=== PATIENT | female | born 1975 | race Caucasian/White ===

== ENCOUNTER 2016-12-21 09:57 | Emergency (ER) | payer OTHER ==
[~2016-12-21] VITALS: Ht 160 cm; Wt 61.2 kg
[~2016-12-21 09:57] MED LIST: AMOX500C PO
[2016-12-21 10:06] VITALS: BP 104/67
[2016-12-21] MEDS ORDERED: AMOX875T PO (10:59)
[2016-12-21] MEDS ORDERED: TRAM-29 PO (10:59)
--- NOTE | 2016-12-21 11:00 | PHYS DOC ---
Past Medical History Past Medical History: Depression Past Surgical History: Cholecystectomy, Other Additional Past Surgical Histo: laparoscopy; D&C; Additional Information: second hand Alcohol Use: None Drug Use: None Adult General Chief Complaint Chief Complaint: DENTAL PROBLEM HPI HPI Patient is a 41 year old left lower gum dental abscess that began 4 days ago. Patient states she has an appointment with her dentist in a couple days. Patient denies any fever or trismus. Review of Systems Review of Systems Constitutional: Denies fever or chills [] Eyes: Denies change in visual acuity, redness, or eye pain [] HENT: left lower gum dental abscess Integument: Denies rash or skin lesions [] Neurologic: Denies headache, focal weakness or sensory changes [] Endocrine: Denies polyuria or polydipsia [] Allergies Allergies Allergies Coded Allergies Type Severity Reaction Last Updated Verified Neomycin Allergy Unknown localized swelling 03/28/14 Yes bacitracin Allergy Unknown localized swelling 03/28/14 Yes polymyxin B Allergy Unknown localized swelling 03/28/14 Yes Physical Exam Physical Exam Constitutional: Well developed, well nourished, no acute distress, non-toxic appearance. [] HENT: Normocephalic, atraumatic, bilateral external ears normal, oropharynx moist, no oral exudates, nose normal. [] Teeth #19, 20, 21 and 22 are severely decayed and broken. Lower gum on the left side with small amount of diffuse swelling consistent with a dental abscess. There is no fluctuance to the area. Skin: Warm, dry, no erythema, no rash. [] Back: No tenderness, no CVA tenderness. [] Extremities: No tenderness, no cyanosis, no clubbing, ROM intact, no edema. [] Neurologic: Alert and oriented X 3, normal motor function, normal sensory function, no focal deficits noted. [] Psychologic: Affect normal, judgement normal, mood normal. [] Current Patient Data Vital Signs Vital Signs Date Time Temp Pulse Resp B/P Pulse Ox O2 Delivery O2 Flow Rate FiO2 12/21/16 10:06 98.4 77 16 100 Room Air 98.4 EKG EKG [] Radiology/Procedures Radiology/Procedures [] Course & Med Decision Making Course & Med Decision Making Pertinent Labs and Imaging studies reviewed. (See chart for details) Patient has a dental abscess. Discharged with amoxicillin for 10 days. Instructed to follow-up with the dentist as soon as possible. Dragon Disclaimer Dragon Disclaimer This electronic medical record was generated, in whole or in part, using a voice recognition dictation system. Departure Departure Impression: Primary Impression: Dental abscess Additional Impression: Dentalgia Disposition: 01 HOME, SELF-CARE Condition: STABLE Referrals: NO PCP (PCP) Follow-up with your dentist as soon as you can Patient Instructions: Dental Abscess Additional Instructions: You seen for a dental abscess. Ensure you complete your antibiotics. Follow-up with your dentist as soon as you can. Scripts Tramadol Hcl (Ultram)50 Mg Tablet1 Tab PO Q6HRS #30 TAB Prov:KATLIN VASQUEZ APRN 12/21/16 Amoxicillin 875 Mg Tablet1 Tab PO BID #20 TAB Prov:KATLIN VASQUEZ APRN 12/21/16 Problem Qualifiers KATLIN VASQUEZ APRN Dec 21, 2016 11:00
== END 2016-12-21 11:05 | disposition home or self-care (01) ==
LOC: ER 09:57
DX: K04.7 Periapical abscess without sinus (principal); K08.89 Other specified disorders of teeth and supporting structures; Z88.1 Allergy status to other antibiotic agents
CPT/HCPCS: 99283

== ENCOUNTER 2017-01-12 16:43 | Emergency (ER) | payer OTHER ==
[~2017-01-12] VITALS: Ht 162.6 cm; Wt 61.2 kg
[~2017-01-12 16:43] MED LIST changes: +AMOX875T PO; +TRAM-29 PO
[2017-01-12 17:06] VITALS: BP 106/56
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
[2017-01-12] MEDS ORDERED: NAPR550T PO (18:10)
[2017-01-12] MEDS ORDERED: ORPH100T PO (18:10)
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
== END 2017-01-12 18:19 | disposition home or self-care (01) ==
LOC: ER 16:43
DX: S46.911A Strain of unspecified muscle, fascia and tendon at shoulder and upper arm level, right arm, initial encounter (principal); S39.012A Strain of muscle, fascia and tendon of lower back, initial encounter; Z88.1 Allergy status to other antibiotic agents; V49.88XA Car occupant (driver) (passenger) injured in other specified transport accidents, initial encounter; Y93.89 Activity, other specified; Y99.8 Other external cause status; Y92.488 Other paved roadways as the place of occurrence of the external cause
CPT/HCPCS: 73030; 99284

== ENCOUNTER 2017-02-25 16:57 | Emergency (ER) | payer OTHER ==
[~2017-02-25] VITALS: Ht 162.6 cm; Wt 63.5 kg
[~2017-02-25 16:57] MED LIST changes: +NAPR550T PO; +ORPH100T PO
[2017-02-25 17:20] VITALS: BP 103/71
[2017-02-25] MEDS ORDERED: HYDR-971 PO (17:34)
[2017-02-25] MEDS ORDERED: AMOX875T PO (17:34)
[2017-02-25] MEDS ORDERED: NAPR500T8 PO (17:34)
--- NOTE | 2017-02-25 17:36 | PHYS DOC ---
Past Medical History Past Medical History: Depression Additional Past Medical Histor: ulcers Past Surgical History: Other Additional Past Surgical Histo: laparoscopy; D&C; colonoscopy Alcohol Use: None Drug Use: None Adult General Chief Complaint Chief Complaint: DENTAL PROBLEM HPI HPI Patient is a 41 year old female who presents with mild left-sided dental pain worse on bitting that began this morning. Patient states she has a dental abscess. She states she tried calling the dentist but they couldn't get her in. Patient denies any fever or trismus. Review of Systems Review of Systems Constitutional: Denies fever or chills [] Eyes: Denies change in visual acuity, redness, or eye pain [] HENT: Dental pain Integument: Denies rash or skin lesions [] Neurologic: Denies headache, focal weakness or sensory changes [] Endocrine: Denies polyuria or polydipsia [] Allergies Allergies Allergies Coded Allergies Type Severity Reaction Last Updated Verified bacitracin Allergy Unknown localized swelling 03/28/14 Yes neomycin Allergy Unknown localized swelling 03/28/14 Yes polymyxin B Allergy Unknown localized swelling 03/28/14 Yes Physical Exam Physical Exam Constitutional: Well developed, well nourished, no acute distress, non-toxic appearance. [] HENT: Normocephalic, atraumatic, bilateral external ears normal, oropharynx moist, no oral exudates, nose normal. [] Severe dental caries throughout her teeth. Most of her teeth appear infected. Left upper gum is mildly indurated. There is redness on the left upper gum. There is a tiny abscess on the premolar on the left upper gum with no fluctuance. Skin: Warm, dry, no erythema, no rash. [] Back: No tenderness, no CVA tenderness. [] Extremities: No tenderness, no cyanosis, no clubbing, ROM intact, no edema. [] Neurologic: Alert and oriented X 3, normal motor function, normal sensory function, no focal deficits noted. [] Psychologic: Affect normal, judgement normal, mood normal. [] Current Patient Data Vital Signs Vital Signs Date Time Temp Pulse Resp B/P (MAP) Pulse Ox O2 Delivery O2 Flow Rate FiO2 02/25/17 17:20 98.2 78 18 97 Room Air 98.2 EKG EKG [] Radiology/Procedures Radiology/Procedures [] Course & Med Decision Making Course & Med Decision Making Pertinent Labs and Imaging studies reviewed. (See chart for details) Patient has infected dental caries and a dental abscess. Discharged with amoxicillin. Provided a note for work. Follow-up with a dentist as soon as possible. Maximiliano Disclaimer Maximiliano Disclaimer This electronic medical record was generated, in whole or in part, using a voice recognition dictation system. Departure Departure Impression: Primary Impression: Dentalgia Additional Impressions: Infected dental caries Dental abscess Disposition: HOME, SELF-CARE Condition: STABLE Referrals: NO PCP (PCP) Follow-up with a dentist as soon as possible Patient Instructions: Dental Abscess, Dental Caries Additional Instructions: You were seen for infected dental caries. We put you on antibiotics. Ensure you complete them. Follow up with your dentist as soon as possible Scripts Naproxen (NAPROXEN) 500 Mg Tablet. 1 TAB PO BID, #60 TAB 1 Refill Prov: KATLIN VASQUEZ APRN 02/25/17 Hydrocodone/Apap 5-325 (NORCO 5-325 TABLET) 1 Each Tablet 1-2 TAB PO Q4-6HRS, #10 TAB Prov: KATLIN VASQUEZ APRN 02/25/17 Amoxicillin (AMOXICILLIN) 875 Mg Tablet 1 TAB PO BID, #20 TAB Prov: KATLIN VASQUEZ APRN 02/25/17 Problem Qualifiers KATLIN VASQUEZ APRN February 25, 2017 17:36
== END 2017-02-25 17:44 | disposition home or self-care (01) ==
LOC: ER 16:57
DX: K04.7 Periapical abscess without sinus (principal); K02.9 Dental caries, unspecified; Z88.1 Allergy status to other antibiotic agents
CPT/HCPCS: 99283

== ENCOUNTER → 2017-04-04 | Outpatient (CLI) | payer OTHER ==
[~2017-04-04] MED LIST changes: +HYDR-971 PO; +NAPR500T8 PO; -TRAM-29 PO; +TRAM-48 PO
--- NOTE | 2017-04-04 12:16 | RAD ---
MR of the right shoulder Indication: Right shoulder pain. Injury 3 months ago. Burning sensation anteriorly. Technique: Standard multiplanar sequences are obtained. Findings: Mild/moderate motion degradation. Acromioclavicular joint:Intact. Rotator cuff: Mild thickening and signal compatible with tendinosis. No measurable fluid defect or rupture. No significant subdeltoid bursal fluid. Glenohumeral joint: No significant effusion. No advanced osteoarthritis. Labrum: No evidence of a tear. Biceps tendon: Limited visualization due to the motion. No definite acute abnormality. Bones: No lesion or acute fracture. Soft tissue: No acute findings. Impression: Rotator cuff tendinosis. No measurable tear. Electronically signed by: James Lopez MD (04/04/2017 12:13 PM)
== END | disposition home or self-care (01) ==
LOC: MRI 10:35
PROVIDERS: ATTEND Orthopaedic Surgery Sports Medicine
DX: M25.511 Pain in right shoulder (principal); R20.8 Other disturbances of skin sensation; X58.XXXD Exposure to other specified factors, subsequent encounter
CPT/HCPCS: 73221

== ENCOUNTER 2017-04-13 19:04 | Emergency (ER) | payer OTHER ==
[~2017-04-13] VITALS: Ht 165.1 cm; Wt 62.6 kg
[2017-04-13 19:20] VITALS: BP 110/59
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
[2017-04-13] MEDS ORDERED: HYDROcodone/APAP 5/325MG 1 TAB TABLET ONE (19:52)
[2017-04-13] MEDS ORDERED: HYDROcodone/APAP 5/325MG 1 TAB TABLET PO ONE (20:00)
== END 2017-04-13 19:57 | disposition home or self-care (01) ==
LOC: ER 19:04
DX: G89.29 Other chronic pain (principal); M25.511 Pain in right shoulder; F32.9 Major depressive disorder, single episode, unspecified; Z88.1 Allergy status to other antibiotic agents
CPT/HCPCS: 99282

== ENCOUNTER 2017-11-10 10:01 | Emergency (ER) | payer SELFPAY, OTHER ==
[2017-11-10] MEDS: HYDROcodone/APAP 5/325MG 1 TAB TABLET PO ×2 (11:26)
[2017-11-10] MEDS: NAPROXEN 500 MG TABLET PO ×2 (11:27)
== END 2017-11-10 11:47 | disposition home or self-care (01) ==
LOC: ER 11:47
DX: M25.561 Pain in right knee (principal); F32.9 Major depressive disorder, single episode, unspecified; Z88.1 Allergy status to other antibiotic agents
CPT/HCPCS: 73564; 99284

== ENCOUNTER 2017-11-15 12:27 | Emergency (ER) | payer SELFPAY | END 2017-11-15 13:00 | disposition home or self-care (01) | LOC: ER 12:27 | DX: Z02.89 Encounter for other administrative examinations (principal); F32.9 Major depressive disorder, single episode, unspecified; Z88.1 Allergy status to other antibiotic agents | CPT/HCPCS: 99281 ==

== ENCOUNTER 2018-04-28 10:14 | Emergency (ER) | payer SELFPAY ==
[2018-04-28] MEDS ORDERED: HYDROcodone/APAP 5/325MG 1 TAB TABLET (11:33)
[2018-04-28] MEDS: HYDROcodone/APAP 5/325MG 1 TAB TABLET PO (11:35)
== END 2018-04-28 11:36 | disposition home or self-care (01) ==
LOC: ER 11:36
DX: K04.7 Periapical abscess without sinus (principal); F32.9 Major depressive disorder, single episode, unspecified; Z88.1 Allergy status to other antibiotic agents
CPT/HCPCS: 99283

== ENCOUNTER 2018-05-20 08:23 | Emergency (ER) | payer SELFPAY ==
[~2018-05-20] VITALS: Ht 162.6 cm; Wt 63.5 kg
[~2018-05-20 08:23] MED LIST changes: +METH4TAB2 PO; +NAPR-682 PO; -NAPR550T PO; +PENI500T PO; +TRAM50TA PO
[2018-05-20 08:57] VITALS: BP 109/66
--- NOTE | 2018-05-20 09:08 | PHYS DOC ---
Past Medical History Past Medical History: Depression Additional Past Medical Histor: ulcers Past Surgical History: Other Additional Past Surgical Histo: laparoscopy; D&C; colonoscopy Alcohol Use: None Drug Use: None Adult General Chief Complaint Chief Complaint: MECHANICAL FALL HPI HPI Patient is a 43 year old female presents to the ED complaining of fall x 2 days ago. States she tripped and fell landing on her right knee. Discussed the pain as sharp. Rates the pain as 6 out of 10. Patient able to ambulate without assistance. Denies fever, head/neck injury, LOC, vision changes, nausea/vomiting , dizziness, weakness or paresthesias. Review of Systems Review of Systems Constitutional: Denies fever or chills [] Respiratory: Denies cough or shortness of breath [] Cardiovascular: No additional information not addressed in HPI [] GI: Denies abdominal pain, nausea, vomiting, bloody stools or diarrhea [] : Denies dysuria or hematuria [] Musculoskeletal: Complains of right knee tenderness. Denies back pain or joint pain [] Integument: Denies rash or skin lesions [] Neurologic: Denies headache, focal weakness or sensory changes [] All other systems were reviewed and found to be within normal limits, except as documented in this note. Allergies Allergies Allergies Coded Allergies Type Severity Reaction Last Updated Verified bacitracin Allergy Unknown localized swelling 03/28/14 Yes neomycin Allergy Unknown localized swelling 03/28/14 Yes polymyxin B Allergy Unknown localized swelling 03/28/14 Yes Physical Exam Physical Exam Constitutional: Well developed, well nourished, no acute distress, non-toxic appearance. [] HENT: Normocephalic, atraumatic Neck: Normal range of motion, no tenderness, supple, no stridor. [] Cardiovascular:Heart rate regular rhythm, no murmur [] Lungs & Thorax: Bilateral breath sounds clear to auscultation [] Skin: Warm, dry, no erythema, no rash. [] Back: No tenderness, no CVA tenderness. [] Extremities: mild left anterior knee tenderness, no cyanosis, no clubbing, ROM intact, no edema. [] Neurologic: Alert and oriented X 3, normal motor function, normal sensory function, no focal deficits noted. [] Psychologic: Affect normal, judgement normal, mood normal. [] Current Patient Data Vital Signs Vital Signs Date Time Temp Pulse Resp B/P (MAP) Pulse Ox O2 Delivery O2 Flow Rate FiO2 05/20/18 08:57 98.5 74 16 109/66 (80) 100 Room Air 98.5 EKG EKG [] Radiology/Procedures Radiology/Procedures PROCEDURE: KNEE RIGHT 3V Indication:FALL X1 DAY AGO ON RIGHT KNEE. PAIN AND SWELLING TECHNIQUE: 3 views of the right knee COMPARISON:None FINDINGS: No acute fracture or dislocation. No suprapatellar effusion. No arthritic changes. IMPRESSION: No acute osseous findings. [] Course & Med Decision Making Course & Med Decision Making Pertinent Labs and Imaging studies reviewed. (See chart for details) []Discussed imaging findings with patient. Patient's pain improved. Patient able to ambulate without assistance. Discussed follow-up with orthopedics if pain persists. Provided contact information/education. Discussed reasons to return to the ED. Patient understands and agrees with plan. Dragon Disclaimer Dragon Disclaimer This electronic medical record was generated, in whole or in part, using a voice recognition dictation system. Departure Departure Impression: Primary Impression: Knee sprain Disposition: 01 HOME, SELF-CARE Condition: IMPROVED Referrals: NO PCP (PCP) MELYSSA CASTANO II, MD Patient Instructions: Knee Sprain SANDRA DE OLIVEIRA May 20, 2018 09:08
--- NOTE | 2018-05-20 09:18 | RAD ---
Indication:FALL X1 DAY AGO ON RIGHT KNEE. PAIN AND SWELLING TECHNIQUE: 3 views of the right knee COMPARISON:None FINDINGS: No acute fracture or dislocation. No suprapatellar effusion. No arthritic changes. IMPRESSION: No acute osseous findings. Electronically signed by: Ezio Lan DO (05/20/2018 9:14 AM) [facility]
== END 2018-05-20 09:51 | disposition home or self-care (01) ==
LOC: ER 08:23
DX: S83.91XA Sprain of unspecified site of right knee, initial encounter (principal); F32.9 Major depressive disorder, single episode, unspecified; Z88.1 Allergy status to other antibiotic agents; W01.0XXA Fall on same level from slipping, tripping and stumbling without subsequent striking against object, initial encounter; Y93.89 Activity, other specified; Y92.89 Other specified places as the place of occurrence of the external cause; Y99.8 Other external cause status
CPT/HCPCS: 73562; 96374; 96375; 99284; 99285-25

== ENCOUNTER 2018-06-13 15:03 | Emergency (ER) | payer SELFPAY ==
[~2018-06-13] VITALS: Ht 160 cm; Wt 63.5 kg
[2018-06-13 15:13] VITALS: BP 118/65
--- NOTE | 2018-06-13 15:55 | PHYS DOC ---
Past Medical History Past Medical History: Depression Additional Past Medical Histor: ulcers Past Surgical History: Other Additional Past Surgical Histo: laparoscopy; D&C; colonoscopy Alcohol Use: None Drug Use: None Adult General Chief Complaint Chief Complaint: SORE THROAT HPI HPI Patient is a 43 year old female who presents with a sore throat 2 days. She denies fever, congestion or earache. She states that she has had some sinus drainage from her allergies. She would like to be checked for strep throat because her niece was recently diagnosed with strep pharyngitis. Review of Systems Review of Systems Constitutional: Denies fever or chills [] Eyes: Denies change in visual acuity, redness, or eye pain [] HENT: See history of present illness Respiratory: Denies cough or shortness of breath [] Cardiovascular: No additional information not addressed in HPI [] Neurologic: Denies headache, focal weakness or sensory changes [] Endocrine: Denies polyuria or polydipsia [] All other systems were reviewed and found to be within normal limits, except as documented in this note. Allergies Allergies Allergies Coded Allergies Type Severity Reaction Last Updated Verified bacitracin Allergy Unknown localized swelling 03/28/14 Yes neomycin Allergy Unknown localized swelling 03/28/14 Yes polymyxin B Allergy Unknown localized swelling 03/28/14 Yes Physical Exam Physical Exam Constitutional: Well developed, well nourished, no acute distress, non-toxic appearance. [] HENT: Normocephalic, atraumatic, bilateral external ears normal, mild pharyngeal erythema with no exudates, there is a 1 cm area of discoloration on the soft palate, nose normal. [] Eyes: PERRLA, EOMI, conjunctiva normal, no discharge. [] Neck: Normal range of motion, no tenderness, supple, no stridor. [] Cardiovascular:Heart rate regular rhythm, no murmur [] Lungs & Thorax: Bilateral breath sounds clear to auscultation [] Neurologic: Alert and oriented X 3, normal motor function, normal sensory function, no focal deficits noted. [] Psychologic: Affect normal, judgement normal, mood normal. [] Current Patient Data Vital Signs Vital Signs Date Time Temp Pulse Resp B/P (MAP) Pulse Ox O2 Delivery O2 Flow Rate FiO2 06/13/18 15:13 98.2 76 18 118/65 (82) 99 Room Air 98.2 EKG EKG [] Radiology/Procedures Radiology/Procedures [] Course & Med Decision Making Course & Med Decision Making Pertinent Labs and Imaging studies reviewed. (See chart for details) []The patient's rapid strep was negative. She has been instructed to follow up on the discoloration was noted on exam for further evaluation. She is in agreement with this plan. Dragon Disclaimer Dragon Disclaimer This electronic medical record was generated, in whole or in part, using a voice recognition dictation system. Departure Departure Impression: Primary Impression: Pharyngitis Disposition: 01 HOME, SELF-CARE Condition: STABLE Referrals: NO PCP (PCP) Patient Instructions: Viral Pharyngitis Additional Instructions: You may use ibuprofen or Tylenol for pain. Use salt water gargles. Have the discoloration on your soft palate rechecked by your physician. You may try using an [id number] allergy medication such as Claritin or Zyrtec for symptom control. JANE NAIDU APRN Jun 13, 2018 15:55
== END 2018-06-13 16:39 | disposition home or self-care (01) ==
LOC: ER 15:03
DX: J02.9 Acute pharyngitis, unspecified (principal); F32.9 Major depressive disorder, single episode, unspecified; Z88.1 Allergy status to other antibiotic agents
CPT/HCPCS: 87070; 87880; 99283

== ENCOUNTER 2020-12-21 12:48 | Emergency (ER) | payer SELFPAY ==
[~2020-12-21] VITALS: Ht 162.6 cm; Wt 65.0 kg
[~2020-12-21 12:48] MED LIST changes: +HYDR-3164 PO; -HYDR-971 PO
[2020-12-21 14:48] VITALS: BP 141/55
--- NOTE | 2020-12-21 15:22 | PHYS DOC ---
Past Medical History Past Medical History: Depression, Migraines Additional Past Medical Histor: ulcers Past Surgical History: Other Additional Past Surgical Histo: laparoscopy; D&C; colonoscopy Smoking Status: Never Smoker Alcohol Use: None Drug Use: None Adult General Chief Complaint Chief Complaint: HEADACHE HPI HPI Patient is a 45 year old female reports a past medical history of migraines now presenting to the emergency department complaint of new onset headache. Patient states that her last 2 days she had a worsening frontal throbbing headache with positive photophobia and phonophobia. No numbness, weakness but does have nausea with no episode of vomiting. Patient states that she was started taking Tylenol Motrin at home with no significant improvement of her symptoms. Patient states that she has migraines approximately 4 times a year and usually controlled with oral [id number] medications. Patient states her last migraine requiring IV medications about a year ago. Patient states that her last follow-up with a neurologist was approximately 8 months ago. Denies any fevers, chills, sore throat, cough, chest pain or shortness of breath. Review of Systems Review of Systems Constitutional: Denies fever or chills [] Eyes: Denies change in visual acuity, redness, or eye pain [] HENT: Denies nasal congestion or sore throat [] Respiratory: Denies cough or shortness of breath [] Cardiovascular: No additional information not addressed in HPI [] GI: Denies abdominal pain, nausea, vomiting, bloody stools or diarrhea [] : Denies dysuria or hematuria [] Musculoskeletal: Denies back pain or joint pain [] Integument: Denies rash or skin lesions [] Neurologic: Denies headache, focal weakness or sensory changes [] Endocrine: Denies polyuria or polydipsia [] All other systems were reviewed and found to be within normal limits, except as documented in this note. Current Medications Current Medications Current Medications Medications (Trade) Dose Ordered Sig/Palak Start Time Stop Time Status Last Admin Dose Admin Diphenhydramine HCl (Benadryl) 50 mg 1X ONCE 12/21/20 15:30 12/21/20 15:31 DC Ketorolac Tromethamine (Toradol 15mg Vial) 15 mg 1X ONCE 12/21/20 15:30 12/21/20 15:31 DC Metoclopramide HCl (Reglan Vial) 10 mg 1X ONCE 12/21/20 15:30 12/21/20 15:31 DC Sodium Chloride 1,000 ml @ 1,000 mls/hr 1X ONCE 12/21/20 15:30 12/21/20 16:29 Allergies Allergies Allergies Coded Allergies Type Severity Reaction Last Updated Verified bacitracin Allergy Intermediate localized swelling 12/21/20 Yes neomycin Allergy Intermediate localized swelling 12/21/20 Yes polymyxin B Allergy Intermediate localized swelling 12/21/20 Yes Physical Exam Physical Exam Constitutional: Well developed, well nourished, no acute distress, non-toxic appearance. [] HENT: Normocephalic, atraumatic, bilateral external ears normal, oropharynx moist, no oral exudates, nose normal. [] Eyes: PERRLA, EOMI, conjunctiva normal, no discharge. [] Neck: Normal range of motion, no tenderness, supple, no stridor. [] Cardiovascular:Heart rate regular rhythm, no murmur [] Lungs & Thorax: Bilateral breath sounds clear to auscultation [] Abdomen: Bowel sounds normal, soft, no tenderness, no masses, no pulsatile masses. [] Skin: Warm, dry, no erythema, no rash. [] Back: No tenderness, no CVA tenderness. [] Extremities: No tenderness, no cyanosis, no clubbing, ROM intact, no edema. [] Neurologic: Alert and oriented X 3, normal motor function, normal sensory function, no focal deficits noted. [] Psychologic: Affect normal, judgement normal, mood normal. [] Current Patient Data Vital Signs Vital Signs Date Time Temp Pulse Resp B/P (MAP) Pulse Ox O2 Delivery O2 Flow Rate FiO2 12/21/20 14:48 98.7 72 18 141/55 (83) 99 Room Air 98.7 EKG EKG [] Radiology/Procedures Radiology/Procedures [] Course & Med Decision Making Course & Med Decision Making Pertinent Labs and Imaging studies reviewed. (See chart for details) 45-year-old female presented emergency department with new onset of apparent migraine. No significant findings on neurologic exam and no neurologic deficits. At this time will provide migraine cocktail and reevaluate. 16:19 -my attempted to reevaluate the patient she was already found. Appears that she is eloped. Dragon Disclaimer Dragon Disclaimer This electronic medical record was generated, in whole or in part, using a voice recognition dictation system. Departure Departure Impression: Primary Impression: Migraine Disposition: 07 AMA/ELOPED/LWBS Condition: STABLE Referrals: NO PCP (PCP) Patient Instructions: Migraine Headache ARIA COREY MD Dec 21, 2020 15:22
[2020-12-21] MEDS ORDERED: METOCLOPRAMIDE HCL 10 MG/2 ML VIAL. IVP ONE (15:30)
[2020-12-21] MEDS ORDERED: diphenhydrAMINE 50 MG/ML VIAL IVP ONE (15:30)
[2020-12-21] MEDS ORDERED: IV NORMAL SALINE 1000ML BAG 1,000 ML IV ONE (15:30)
[2020-12-21] MEDS ORDERED: KETOROLAC 15 MG/ML VIAL. IVP ONE (15:30)
== END 2020-12-21 15:49 | disposition left against medical advice (07) ==
LOC: ER 12:48
DX: G43.909 Migraine, unspecified, not intractable, without status migrainosus (principal); H53.143 Visual discomfort, bilateral; F32.9 Major depressive disorder, single episode, unspecified; Z98.890 Other specified postprocedural states; Z88.1 Allergy status to other antibiotic agents; Z88.8 Allergy status to other drugs, medicaments and biological substances
CPT/HCPCS: 99281

== ENCOUNTER 2021-01-22 06:59 | Emergency (ER) | payer SELFPAY ==
[~2021-01-22] VITALS: Ht 160 cm; Wt 70.4 kg
[2021-01-22 07:14] VITALS: BP 105/68
--- NOTE | 2021-01-22 08:07 | PHYS DOC ---
Past Medical History Past Medical History: Depression, Migraines Additional Past Medical Histor: ulcers Past Surgical History: Other Additional Past Surgical Histo: laparoscopy; D&C; colonoscopy Smoking Status: Never Smoker Alcohol Use: None Drug Use: None General Adult EDM: Chief Complaint: MECHANICAL FALL HPI: HPI: 45-year-old female presenting to the emergency department today after a fall. She reports falling down about 8 stairs. She mostly landed on her left side and has pain in her left trapezius musculature and her left flank. She has a bruise on her left flank. She denies hitting her head, loss of consciousness or any other injuries. The pain in her flank is moderate nonradiating without alleviating factors associated with a bruise. Her shoulder pain is worse after lifting heavy objects yesterday. She denies any pain in the shoulder joint itself but her her pain is in the trapezius musculature of the back. Review of systems negative for abdominal pain chest pain shortness of breath headache head injury loss of consciousness neck pain numbness weakness or tingling or any other injuries to her extremities. All other review of systems negative. ED course: 45-year-old female presented emerge department today with left flank pain and left trapezius muscular pain after a fall down the stairs. On exam her shoulder has normal range of motion has no pain with passive range of motion. She is nontender clavicle with good strength in extension and flexion and internal and external rotation. Neurovascular intact with palpable pulse. Her extremities otherwise are atraumatic without any bruising and nontender. Normal motion of the joints. Neurovascular intact in her extremities. The head is atraumatic and nontender to palpation. Her back has a bruise on the left side. My plan was to get a CBC chemistry panel urine analysis and a CT the abdomen pelvis to exclude retroperitoneal hematoma. I do not believe that we need to do a shoulder x-ray today as she is nontender in the joint with normal range of motion without any pain in the joint itself. Unfortunately the patient wanted to leave AMA. AMA I informed the patient of their right to a medical screening exam and any treatment and/or stabilization that may be necessary regardless of their ability to pay. The patient appears to have intact insight, judgment, and reason. In my opinion, this patient has the capacity to make decisions. The patient presented with left flank pain after a fall and I am concerned that this could be retroperitoneal hematoma or other acute traumatic injuries. My initial plan prior to the pt expressing the desire to leave was blood work with CT and urinalysis. I explained the risk of and disability to the patient in plain language which they were able to demonstrate in their own words verbal understanding. I discussed the limitations of the workup thus far. The pt has verbalized understanding of my concerns. I offered alternatives to the therapy including close follow-up. I recommended the pt follow up with family doctor/PCP today or tomorrow. I explained that at any time if the patient changed their mind, we are always open and would be happy to have them back. The patient refused further care and then left against medical advice. Heart Score: C/O Chest Pain: No Risk Factors: Risk Factors: DM, Current or recent (<one month) smoker, HTN, HLP, family hist ory of CAD, obesity. Risk Scores: Score 0 - 3: 2.5% MACE over next 6 weeks - Discharge Home Score 4 - 6: 20.3% MACE over next 6 weeks - Admit for Clinical Observation Score 7 - 10: 72.7% MACE over next 6 weeks - Early Invasive Strategies Allergies: Allergies: Allergies Coded Allergies Type Severity Reaction Last Updated Verified bacitracin Allergy Intermediate localized swelling 12/21/20 Yes neomycin Allergy Intermediate localized swelling 12/21/20 Yes polymyxin B Allergy Intermediate localized swelling 12/21/20 Yes Physical Exam: PE: General Appearance alert, cooperative, no distress, responsive Head Normocephalic, without obvious abnormality, atraumatic Eyes conjunctivae/corneas clear. PERRL, EOM's intact. Ears normal TM's and external ear canals AU Nose Nares normal. Septum midline. Mucosa normal. No drainage or sinus tenderness. Throat no blood or lacerations, normal alignment Neck supple, symmetrical, trachea midline, cervical collar in place Back/Spine symmetric, normal curvature. ROM normal, no abrasions, no tenderness to palpation in the midline, no step-offs. Patient has an area of ecchymosis on the left flank which is tender to palpation. Nontender in the rib cage. Lungs clear to auscultation bilaterally Chest Wall normal ribcage without tenderness to palpation, crepitus or emphysema Heart reg rate and regular rhythm, S1, S2 normal, no murmur, click, rub or gallop Abdomen soft, non-tender. Bowel sounds normal. No masses, no organomegaly Pelvic stable Extremities extremities normal, atraumatic with normal range of motion Pulses 2+ and symmetric Skin Skin color, texture, turgor normal. No rashes or lesions Neurologic Grossly normal Eye opening: (4) spontaneous Best motor response: (6) obeys verbal command Best verbal response: (5) oriented and converses Total Dhruv (E + M + V) = 15 Current Patient Data: Vital Signs: Vital Signs Date Time Temp Pulse Resp B/P (MAP) Pulse Ox O2 Delivery O2 Flow Rate FiO2 01/22/21 07:14 97.6 80 16 105/68 (80) 99 Room Air 97.6 EKG: EKG: [] Radiology/Procedures: Radiology/Procedures: [] Course & Med Decision Making: Course & Med Decision Making Pertinent Labs and Imaging studies reviewed. (See chart for details) [] Dragon Disclaimer: Dragon Disclaimer: This electronic medical record was generated, in whole or in part, using a voice recognition dictation system. Departure Departure Impression: Primary Impression: Injury of flank Additional Impressions: Strain of trapezius muscle Fall Disposition: 07 LEFT AGAINST MEDICAL ADVICE Condition: GUARDED Referrals: NO PCP (PCP) Patient Instructions: Flank Pain Additional Instructions: Today you left AGAINST MEDICAL ADVICE. We recommend you follow-up with your doctor today or tomorrow and return immediately if you change your mind. DAYSI CHAVEZ MD Jan 22, 2021 08:07
[2021-01-22 08:16] LABS: BILIRUBIN,URINE NEGATIVE (NEG); CLARITY,URINE CLEAR; COLOR,URINE YELLOW; NITRITE,URINE NEGATIVE (NEG); PH,URINE 7.5 (<5.0-8.0); PROTEIN,URINE NEGATIVE (NEG-TRACE); UROBILINOGEN,URINE 0.2 mg/dL (0.2 mg/dL)
[2021-01-22 08:27] LABS: BACTERIA,URINE FEW /HPF (0-FEW); RBC,URINE 0 /HPF (0-2)
== END 2021-01-22 07:55 | disposition left against medical advice (07) ==
LOC: ER 06:59
DX: S29.012A Strain of muscle and tendon of back wall of thorax, initial encounter (principal); M25.512 Pain in left shoulder; R10.9 Unspecified abdominal pain; F32.9 Major depressive disorder, single episode, unspecified; G43.909 Migraine, unspecified, not intractable, without status migrainosus; Z98.890 Other specified postprocedural states; W18.39XA Other fall on same level, initial encounter; Y93.89 Activity, other specified; Y92.89 Other specified places as the place of occurrence of the external cause; Y99.8 Other external cause status
CPT/HCPCS: 81001; 87086; 99283